=== PATIENT | male | born 2000 | race Caucasian/White ===

== ENCOUNTER 2023-05-28 13:32 | Emergency (ER) | payer OTHER ==
[2023-05-28 13:48] VITALS: BP 117/82; PULSE 82; RESP 18; TEMP 98.2; BMI 38.2
== END 2023-05-28 16:00 | disposition left against medical advice (07) ==
LOC: JER 13:32
DX: R06.02 Shortness of breath (principal); R07.89 Other chest pain
CPT/HCPCS: 93005; 93010; 99283-25